=== PATIENT | female | born 1990 | race Caucasian/White ===

== ENCOUNTER 2017-03-29 12:12 | Emergency (ER) | payer SELFPAY ==
--- NOTE | 2017-03-29 12:15 | ED Physician Documentation ---
General Adult - HISTORIAN Historian: patient - HPI Stated Complaint: vag bleeding in Chief Complaint: General Adult Onset: hours Timing: still present Severity: moderate Further Comments: yes (Pt is a 26 yo female who states that she did a home urine test this morning, which was positive. Pt felt nauseated yesterday and wondered she had morning sickness. Pt has had 2 previous pregnancies with one live and one miscarriage, which occurred last November at 9 weeks gestation. Pt states this was an induced for absent heart tones. Pt has not had menses since November, she says. Pt has abd pain.) - ROS CONST: no problems EYES/ENT: none CVS/RESP: none GI/: abdominal pain, other (vag bleeding) MS/SKIN/LYMPH: none - PAST HX Past History: other ( loss at 9 weeks.) Surgeries/Procedures: Allergies/Adverse Reactions: Allergies Allergy/AdvReac Type Severity Reaction Status Date / Time Anesthetics - Amide Type Allergy Verified 03/29/17 12:33 Home Medications: Ambulatory Orders Medication Instructions Recorded NK [NK] 03/29/17 - SOCIAL HX Smoking History: cigarettes - FAMILY HX Family History: No - VITAL SIGNS Vital Signs: Vital Signs Temp Pulse Resp BP Pulse Ox 126/77 02/14/15 20:25 - REVIEWED ASSESSMENTS Nursing Assessment Reviewed: Yes Vitals Reviewed: Yes Progress - Progress Progress: Labs and IV fluid were ordered, and pt was told she likely would be transferred to [place]. Pt decided to sign out AMA, saying that she would go to [place] herself. Pt warned of the dangers of possible ectopic and the possiblity of from hemorrhage. Pt signed out AMA, before all of the exam , including the pelvic exam, could be completed. Pt did not permit IV placement or lab draw. General Adult Physical Exam - PHYSICAL EXAM GENERAL APPEARANCE: mild distress EENT: pharynx normal NECK: normal inspection, supple RESPIRATORY: no resp distress, chest non-tender, breath sounds normal CVS: reg rate & rhythm, heart sounds normal ABDOMEN: soft, normal bowel sounds, tenderness (mild diffuse) BACK: normal inspection SKIN: warm/dry, normal color EXTREMITIES: non-tender, normal range of motion, no evidence of injury NEURO: oriented X3, motor nml, sensation nml Discharge Clincal Impression: Vaginal bleeding, Positive home test Referrals: Terry Urbina MD [Primary Care Provider] - Home Medications: Ambulatory Orders NK [NK] 03/29/17 Condition: Fair Disposition: 07 AGAINST MEDICAL ADVICE Decision to Admit: NO Decision Time: 12:45
[2017-03-29] MEDS ORDERED: 0.9 % SODIUM CHLORIDE 1,000 ML IV ONE (12:20)
[2017-03-29 12:42] VITALS: BP 125/86
== END 2017-03-29 12:44 | disposition left against medical advice (07) ==
LOC: ED 12:12
DX: N93.9 Abnormal uterine and vaginal bleeding, unspecified (principal)
CPT/HCPCS: 99281

== ENCOUNTER 2017-11-16 16:17 | Outpatient (CLI) | payer SELFPAY | END 2017-11-16 16:30 | LOC: LABRHC 16:17 | PROVIDERS: ATTEND Physician Assistant | DX: R30.0 Dysuria (principal) | CPT/HCPCS: 87086 ==

== ENCOUNTER 2017-11-30 23:03 | Emergency (ER) | payer OTHER ==
[2017-11-30] MEDS: 0.9 % SODIUM CHLORIDE 1,000 ML IV ONE (23:50)
[2017-11-30] MEDS: ONDANSETRON HCL/PF 4 MG/ 2ML VIAL IVP ONE (23:55)
--- NOTE | 2017-12-01 00:33 | ED Physician Documentation ---
General Adult - HISTORIAN Historian: patient - HPI Stated Complaint: Lower abdominal pain Chief Complaint: General Adult Onset: hours Timing: still present Severity: moderate Further Comments: yes (Pt is a 27 yo female with abd pain. Pt has a hx kidney stones and was seen this afternoon at [facility] ER. Pt had an u/ s study that was neg for kidney stones and hydronephrosis. Pt has vag u/s one week ago that showed a gestational sac and was told that her was intrauterine. At earlier presentation today pt had dysuria. Pt now c/o vag burning and discomfort. No vag bleeding or discharge. Pt has had nausea. Pt was rx'd Macrobid and Zofran at [place]. Pt has had one dose of these and is not yet due for second dose.) - ROS CONST: no problems EYES/ENT: none CVS/RESP: none GI/: abdominal pain, nausea MS/SKIN/LYMPH: none - PAST HX Past History: other (c-sec) Allergies/Adverse Reactions: Allergies Allergy/AdvReac Type Severity Reaction Status Date / Time Anesthetics - Amide Type Allergy Verified 11/30/17 23:34 Home Medications: Ambulatory Orders Medication Instructions Recorded Nitrofurantoin Monohyd/M-Cryst 100 mg PO CMEAL 11/30/17 [Macrobid] Ondansetron HCl Rapdis [Zofran Odt] 4 mg PO Q8 PRN 11/30/17 - SOCIAL HX Smoking History: cigarettes - FAMILY HX Family History: No - VITAL SIGNS Vital Signs: Vital Signs Temp Pulse Resp BP Pulse Ox 98.6 F 86 18 125/86 96 11/30/17 23:05 11/30/17 23:05 11/30/17 23:05 03/29/17 12:34 11/30/17 23:05 - REVIEWED ASSESSMENTS Nursing Assessment Reviewed: Yes Vitals Reviewed: Yes Progress - Progress Progress: NS 1 L IVF Zofran 4 mg IV Tylenol 1 gm po vag exam neg; wet prep neg. [place] (5/325) 1 po Macrobid 100 mg po d/c instructions Continue Macrobid and Zofran as prescribed. Follow up with [facility] provider if symptoms do no improve or if you have concerns. Do not take more than 4 grams of Tylenol per 24 hr period. ED Results Lab/Radiology - Orders Orders: ED Orders Category Date Time Status HCG [URINE HCG] Stat Lab 11/30/17 Uncollected UA [URINALYSIS] Routine Lab 11/30/17 Ordered NORMAL SALINE @ 1000 MLS/HR ( 1000ml BOLUS) Med 11/30/17 23:17 Ordered 0.9 % Sodium Chloride [Normal Saline] 1,000 ml IV Q1H Ondansetron HCl/Pf [Zofran 4 mg/2 ml] Med 11/30/17 23:18 Once 4 mg IVP NOW ONE General Adult Physical Exam - PHYSICAL EXAM GENERAL APPEARANCE: moderate distress EENT: pharynx normal NECK: normal inspection, supple RESPIRATORY: no resp distress, chest non-tender, breath sounds normal CVS: reg rate & rhythm, heart sounds normal ABDOMEN: soft, no organomegaly, normal bowel sounds BACK: normal inspection, CVA tenderness (R), CVA tenderness (L) SKIN: warm/dry, normal color EXTREMITIES: non-tender, normal range of motion, no evidence of injury NEURO: oriented X3, motor nml, sensation nml Discharge Clincal Impression: Dysuria during Qualifiers: Trimester: first trimester Qualified Code(s): O26.891 - Other specified related conditions, first trimester; R30.0 - Dysuria; R30.0 - Dysuria Referrals: Terry Urbina MD [Primary Care Provider] - Condition: Good Disposition: 01 HOME, SELF-CARE Decision to Admit: NO Decision Time: 01:04
[2017-12-01] MEDS: ACETAMINOPHEN 325 MG TABLET PO ONE (00:37)
[2017-12-01] MEDS: ACETAMINOPHEN 500 MG TABLET ONE (00:38)
[2017-12-01] MEDS: HYDROcodone /APAP 5/325 1 EACH TABLET PO ONE (01:00)
[2017-12-01] MEDS: NITROFURANTOIN 100 MG CAPSULE PO ONE (01:00)
[2017-12-01 01:08] VITALS: BP 118/68
[2017-12-01 06:50] LABS: APPEARANCE,URINE CLEAR (CLEAR); COLOR,URINE YELLOW (YELLOW); OCCULT BLOOD,URINE NEGATIVE (NEGATIVE); URINE HCG POSITIVE (NEGATIVE); UROBILINOGEN URINE 0.2 Eu (0.2-1.0)
== END 2017-12-01 01:07 | disposition home or self-care (01) ==
LOC: ED 23:03
DX: R30.0 Dysuria (principal); O26.891 Other specified pregnancy related conditions, first trimester
CPT/HCPCS: 81002; 81025; A9270; J2405; J7030; 96365; 96375; 99283; S1016

== ENCOUNTER 2018-05-31 13:47 | Emergency (ER) | payer SELFPAY ==
[2018-05-31 14:13] VITALS: BP 151/72
--- NOTE | 2018-05-31 14:36 | ED Physician Documentation ---
Low Back Pain - HPI Stated Complaint: L hip pain Chief Complaint: Hip Pain Onset: days ago (6) Duration: continues in ED Recent Injury: No Context: turning, bending Where: home Severity: moderate Quality: sharp Front/Back of Body, Lg (Color): 1 - sharp pain radiating down front left leg to the knee Associated Symptoms: denies: fever, chills Worsened By:: upright position, movement to RT flexion Relieved By: remaining still Further Comments: no - ROS CONST: no problems CVS/RESP: none EYES/ENT: none MS/SKIN/LYMPH: none Neuro/Psych: none GI/: abdominal pain - PAST HX Past History: other (ectopic left ). denies: back injury Surgeries/Procedures: other (left salpingectomy November 2017) Allergies/Adverse Reactions: Allergies Allergy/AdvReac Type Severity Reaction Status Date / Time Anesthetics - Amide Type Allergy Verified 05/31/18 13:57 Home Medications: Ambulatory Orders Medication Instructions Recorded NK 05/31/18 - SOCIAL HX Smoking History: quit greater than 1 year (10 pack year smoking history), quit less than 1 year - FAMILY HX Family History: none - VITAL SIGNS Vital Signs: Vital Signs Temp Pulse Resp BP Pulse Ox 97.6 F 87 16 151/72 98 05/31/18 13:50 05/31/18 13:50 05/31/18 13:50 05/31/18 13:50 05/31/18 13:50 - REVIEWED ASSESSMENTS Nursing Assessment Reviewed: Yes Vitals Reviewed: Yes Progress - Results/Orders Results/Orders: Urinalysis negative. Urine HCG positive x 2 Endovaginal pelvic ultrasound History: Positive urine test. No beta hCG is available Transverse and longitudinal images were obtained through the pelvis endovaginally. The uterus measures approximately 9.4 x 4.8 x 5.7 cm in greatest dimension. The endometrium is thickened up to 2 cm. No gestational sac is seen. No free fluid is noted in the pelvis. The right ovary measures 2.7 x 2.6 x 2.1 cm. The left ovary measures 3.3 x 2.7 x 3.5 cm. Both ovaries appear normal with normal flow. Impression: Thickened endometrium up to 2 cm. No gestational sac is seen. No complex adnexal masses are noted. The ovaries are normal with normal flow. Without a beta hCG, these findings are nonspecific and could represent the sequelae of a very early . Without a BHCG, ectopic would not be excluded although no complex adnexal masses are noted and there is no free fluid. Electronically signed on May 31, 2018 3:39:42 PM CDT by: Nahomy Kline ED Results Lab/Radiology - Lab Results Lab Results: Lab Results 05/31/18 05/31/18 Unknown Unknown WBC Comment 8.43 thou/uL thou/uL (4.00-12.00) RBC 5.01 mil/uL mil/uL (3.90-5.20) Hemoglobin (Send Out) 12.9 g/dL g/dL (11.5-16.0) Hct (Send Out) 39.5 % % (34.5-46.5) MCV (Send Out) 78.9 fL L fL (80.0-100.0) MCH 25.7 pg L pg (28.0-34.0) MCHC (Send Out) 32.6 g/dL g/dL (30.0-36.0) RDW Coeff of Yanna 14.1 % % (11.3-14.7) Plt Count 272 thou/uL thou/uL (130-400) Absolute Lymphs (auto) 2.92 thou/uL thou/uL (0.60-4.00) Absolute Monos (auto) 0.25 thou/uL thou/uL (0.00-0.90) Absolute Basos (auto) 0.03 thou/uL thou/uL (0.00-0.50) Neutrophils % 60.1 % % (39.0-79.0) Absolute Neutrophils 5.07 thou/uL thou/uL (1.50-7.70) Lymphocytes 34.6 % % (16.0-50.0) Monocytes 3.0 % % (0.0-11.0) Absolute Eosinophils 0.17 thou/uL thou/uL (0.00-0.60) Basophilia % 0.3 % % (0.0-1.5) Eosinophil Count 2.0 % % (0.0-6.8) Sodium 137 mmol/L mmol/L (136-145) Potassium 3.5 mmol/L mmol/L (3.5-5.1) Chloride 114 mmol/L H mmol/L (98-107) Carbon Dioxide 21 mmol/L L mmol/L (22-30) BUN 9 mg/dL mg/dL (7-17) Creatinine 0.60 mg/dL mg/dL (0.52-1.04) Estimated Creat Clear 291 Est GFR ( Amer) > 60 (60 - ) Est GFR (Non-Af Amer) > 60 (60 - ) Glucose 101 mg/dL mg/dL (74-106) Calcium 8.5 mg/dL mg/dL (8.4-10.2) - Orders Orders: ED Orders Category Date Time Status US PELVIS TV [US TRANSVAGINAL PELVIS] [US] Stat Exams 05/31/18 Taken BETA-HCG, QUANT. TUMOR MARKER Stat Lab 05/31/18 Received BMP Routine Lab 05/31/18 Completed CBC REF Stat Lab 05/31/18 Completed URINALYSIS Routine Lab 05/31/18 Ordered URINE HCG [URINE HCG] Stat Lab 05/31/18 14:20 Ordered Low Back Pain/Injury - Physical Exam General Appearance: no acute distress EENT: [place] Neck: non-tender Resp/CVS: breath sounds nml, heart sounds nml Abdomen: non-tender Back: other (point tenderness over L5/S1) Straight Leg Raising: Negative Left, Negative Right Neuro/Psych: oriented x3 Skin: warm/dry, normal color Extremities: non-tender, no edema Discharge Clincal Impression: Positive urine test Low back pain Qualifiers: Back pain laterality: left Sciatica presence: without sciatica Referrals: Primary Doctor,No [Primary Care Provider] - 2 Days Additional Instructions: Tylenol for pain as needed. Ice/heat to affected area as needed Disposition: 01 HOME, SELF-CARE Decision to Admit: NO Date of Decison to Admit: 05/31/18 Decision Time: 15:54
[2018-05-31 14:56] LABS: eGFR (Non-African) > 60
[2018-05-31 15:41] LABS: BASO % 0.3 % (0.0-1.5); LYMPH ABS # 2.92 thou/uL (0.60-4.00); MCH. 25.7 pg (28.0-34.0); MCV 78.9 fL (80.0-100.0); MONOCYTE ABS # 0.25 thou/uL (0.00-0.90); PLATELET COUNT 272 thou/uL (130-400)
--- NOTE | 2018-05-31 16:36 | Diagnostic Imaging Report ---
ALPESH MENDOZA [facility] [id number] Count Includes [facility] [address] [place] [address]. [id number] Report Submission Date: May 31, 2018 3:39:42 PM CDT Patient Study Name: MARICARMEN MAC Date: May 31, 2018 3:10:30 PM CDT Modality Type: US Gender: F Description: US TRANSVAGINAL : 86 Institution: [facility] Physician: ALPESH MENDOZA Endovaginal pelvic ultrasound History: Positive urine test. No beta hCG is available Transverse and longitudinal images were obtained through the pelvis endovaginally. The uterus measures approximately 9.4 x 4.8 x 5.7 cm in greatest dimension. The endometrium is thickened up to 2 cm. No gestational sac is seen. No free fluid is noted in the pelvis. The right ovary measures 2.7 x 2.6 x 2.1 cm. The left ovary measures 3.3 x 2.7 x 3.5 cm. Both ovaries appear normal with normal flow. Impression: Thickened endometrium up to 2 cm. No gestational sac is seen. No complex adnexal masses are noted. The ovaries are normal with normal flow. Without a beta hCG, these findings are nonspecific and could represent the sequelae of a very early . Without a BHCG, ectopic would not be excluded although no complex adnexal masses are noted and there is no free fluid. Electronically signed on May 31, 2018 3:39:42 PM CDT by: Nahomy NAVARRO
[2018-06-01 06:33] LABS: APPEARANCE,URINE CLEAR (CLEAR); OCCULT BLOOD,URINE TRACE-LYSED (NEGATIVE); PH URINE 5.5 (5.0 - 8.0); URINE HCG POSITIVE (NEGATIVE); UROBILINOGEN URINE 0.2 Eu (0.2-1.0)
== END 2018-05-31 16:05 | disposition home or self-care (01) ==
LOC: ED 13:47
DX: M54.5 Low back pain (principal); Z32.01 Encounter for pregnancy test, result positive
CPT/HCPCS: 76830; 80048; 81002; 81025; 84702; 85025; 99284

== ENCOUNTER 2018-11-29 14:28 | Emergency (ER) | payer SELFPAY ==
--- NOTE | 2018-11-29 14:56 | ED Physician Documentation ---
Ear Complaints - HISTORIAN Historian: patient - HPI Chief Complaint: Ear Complaints Further Comments: yes (28 year old female patient presents with left ear pain x 2 days. Patient is 30 weeks . Has used tylenol today. Reports active movement.) - ROS CONST: no problems CVS/RESP: none GI/: denies: black stools, nausea, vomiting, other MS/SKIN/LYMPH: none NEURO/PSYCH: none All Systems -: Yes - PAST HX Past History: none Allergies/Adverse Reactions: Allergies Allergy/AdvReac Type Severity Reaction Status Date / Time Anesthetics - Amide Type Allergy Verified 11/29/18 14:59 No Known Drug Allergies Allergy Verified 11/29/18 14:59 Home Medications: Ambulatory Orders Medication Instructions Recorded Amoxicillin [Trimox] 500 mg PO TID #30 capsule 11/29/18 Pnv No.121/Iron/Folic Acid 1 each PO DAILY 11/29/18 [ Multivitamin Tablet] - SOCIAL HX Smoking History: non-smoker - FAMILY HX Family History: No - VITAL SIGNS Vital Signs: Vital Signs Temp Pulse Resp BP Pulse Ox 161/86 08/17/18 17:52 - REVIEWED ASSESSMENTS Nursing Assessment Reviewed: Yes Vitals Reviewed: Yes Progress - Progress Progress: FHT 110 Ear Complaint Physical Exam - EXAM General Appearance: mild distress Ear: auricle nml, suture winder hand.canal nml, left, bulging of TM Mouth/Throat: lips nml, gums nml, pharynx nml Nose: nml inspection Eye: eyes nml inspection, PERRL Resp/CVS: chest non-tender, breath sounds nml, heart sounds nml Abdomen: non-tender, no organomegaly, other (protuberant abdomen) Skin: nml color, no skin rash Neuro/Psych: oriented x3, mood/affect nml Discharge Clincal Impression: Right otitis media Qualifiers: Otitis media type: suppurative Chronicity: acute Recurrence: non-recurrent Spontaneous tympanic membrane rupture: without spontaneous rupture Qualified Code(s): H66.001 - Acute suppurative otitis media without spontaneous rupture of ear drum, right ear Prescriptions: Amoxicillin [Trimox] 500 mg PO TID #30 capsule Referrals: Ann-Marie Ashby MD [Primary Care Provider] - 2 Days Additional Instructions: [facility] admin your antibiotics and start them today. Use tylenol and/or ibuprofen as needed for pain. Condition: Stable Disposition: 01 HOME, SELF-CARE Decision to Admit: NO Decision Time: 14:56
[2018-11-29] MEDS: ACETAMINOPHEN 500 MG TABLET PO ONE (15:07)
[2018-11-29 15:20] VITALS: BP 139/76
== END 2018-11-29 15:12 | disposition home or self-care (01) ==
LOC: ED 14:28
DX: H66.001 Acute suppurative otitis media without spontaneous rupture of ear drum, right ear (principal); Z33.1 Pregnant state, incidental
CPT/HCPCS: 99283